=== PATIENT | female | born 1980 | race Caucasian/White ===

== ENCOUNTER 2020-02-23 14:42 | Outpatient (REF) | payer MEDICAID, SELFPAY | END 2020-02-23 14:43 | disposition home or self-care (01) | LOC: HO.LAB 14:42 | PROVIDERS: Visit Provider Internal Medicine | DX: Z20.828 Contact with and (suspected) exposure to other viral communicable diseases (principal) | CPT/HCPCS: U0003 ==

== ENCOUNTER 2020-08-18 09:00 | Outpatient (REF) | payer MEDICAID, SELFPAY ==
[2020-08-18 09:52] LABS: COVID-19 Test Negative (Negative)
== END 2020-08-18 09:01 | disposition home or self-care (01) ==
LOC: HO.LAB 09:00
PROVIDERS: Visit Provider Internal Medicine
DX: Z20.822 Contact with and (suspected) exposure to COVID-19 (principal)
CPT/HCPCS: 36415; 87635; C9803

== ENCOUNTER 2020-11-28 15:15 | Emergency (ER) | payer MEDICAID, SELFPAY ==
--- NOTE | ~2020-11-28 | US_ITS ---
EXAMINATION: US VENOUS ULTRASOUND WITH DOPPLER LOWER EXTREMITY, LEFT CLINICAL INFORMATION: Calf pain. COMPARISON: None TECHNIQUE: Ultrasound of the deep veins is performed from the hip to the calf with compression sonography and color and pulse Doppler assessment. Spectral analysis with color-flow imaging is performed. FINDINGS: There is normal venous compression and respiratory variation and augmented flow. The visualized common femoral vein, superficial femoral vein, profunda femoral vein, popliteal vein, and the trifurcation region shows no evidence of deep venous thrombosis. There is no small to moderate popliteal fossa cyst. No calf edema seen. If the patient's symptoms persist, followup ultrasound in 5 days 7 days might be of value to exclude proximal propagation from a non-visualized calf vein. US/US venous duplex LE LT IMPRESSION: No DVT demonstrated in the left lower extremity. Small to moderate popliteal cyst
--- NOTE | ~2020-11-28 | XR_ITS ---
EXAMINATION: XR LUMBOSACRAL SPINE CLINICAL INFORMATION: Low back pain. COMPARISON: None TECHNIQUE: Three views of the lumbosacral spine. FINDINGS: There is normal lumbar lordosis. The vertebral heights and alignment is normal. No visible acute fracture, dislocation or subluxation seen. No lytic process seen. The paravertebral soft tissues are normal XR/XR lumbar spine 2-3V IMPRESSION: Unremarkable lumbar spine exam.
[2020-11-28 15:32] VITALS: BP 122/64; PULSE 77; RESP 20; TEMP 36.8; O2SAT 95; BMI 38.0
--- NOTE | 2020-11-28 15:35 | ED_ITS ---
HPI - General Adult General Chief complaint: General Medical Stated complaint: back pain Time Seen by Provider: 11/28/20 15:34 Related Data Previous Rx's Medication Instructions Recorded cyclobenzaprine 10 mg tablet 10 mg PO TID 3 Days #9 tab 11/28/20 prednisone 50 mg tablet 50 mg PO DAILY 5 Days #5 tab 11/28/20 Allergies Allergy/AdvReac Type Severity Reaction Status Date / Time No Known Allergies Allergy Verified 11/28/20 15:32 [facility] Past Medical History Medical History (Updated 11/29/20 @ 00:01 by Virginie Vaz) No pertinent past medical history Social History Social History Advance Directives: No Advance Directives Information Provided: Yes Patient : No Physical Exam Vital Signs: Vital Signs: Last Vital Signs Temp 97.9 F 11/28/20 16:39 Pulse 65 11/28/20 16:39 Resp 16 11/28/20 16:39 BP 99/49 L 11/28/20 16:39 Pulse Ox 98 11/28/20 16:39 Body Mass Index 38.0 Course Course Course Narrative: Patient presents to the ED for left lower back pain and secondary complaint she believes leg calf is swollen and is painful and is concerned for blood clot ( legs on exam presently negative for swelling or pitting edema). Back xray and leg US ordered. This is rapid medical screening. Patient vital signs stable. 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 You can take the cyclobenzaprine which is a muscle relaxant tonight. Please do not take the prednisone until tomorrow morning. Please rest, but when you feel better, try the back stretches that we discussed. Please call the phone number that I gave you for to establish a primary care provider. Once you establish with a primary care provider you might want to be referred to physical therapy so you do not have chronic back pain. In addition, I have referred you to orthopedics. You also have a Hill cyst in your left leg. If this is bothersome you can have a follow-up appointment with Orthopedics, they may offer you a steroid injection. Hill's cysts will often resolve on their own. If you have numbness in her groin, bowel incontinence leg weakness, or urinary retention, please return to the emergency. Please return to emergency room for any or concerning symptoms Prescriptions: New prednisone 50 mg tablet 50 mg PO DAILY 5 Days Qty: 5 RF: 0 cyclobenzaprine 10 mg tablet 10 mg PO TID 3 Days Qty: 9 RF: 0 Referrals: Michel Dennis MD [Physician] - 2 days (Hill's cyst left knee, knee pain x 1 week) Interventions: ED Discharge Assessment Last Done: 11/28/20 18:06 Discharge Date/Time: 11/28/20 18:06
--- NOTE | 2020-11-28 16:37 | ED.GENADULT ---
HPI - General Adult General Chief complaint: General Medical Stated complaint: back pain Time Seen by Provider: 11/28/20 15:34 Source: patient Mode of arrival: ambulatory Limitations: no limitations History of Present Illness HPI narrative: 40-year-old female presents with pain in her left buttock radiating down to her left leg. This started 2 days ago. She has had this before. She cannot set on the toilet due to pain, she cannot wipe herself due to pain. Her left leg feels numb. States the pain as a 10/10 now. Patient took 2 Motrin this morning. Patient has no UTIs symptoms, no saddle paresthesias, no fevers, no history of IV drug use, no leg weakness, no personal history of cancer States she tried to urinate yesterday but could not urinate, but can urinate today. Related Data Previous Rx's Medication Instructions Recorded cyclobenzaprine 10 mg tablet 10 mg PO TID 3 Days #9 tab 11/28/20 prednisone 50 mg tablet 50 mg PO DAILY 5 Days #5 tab 11/28/20 Allergies Allergy/AdvReac Type Severity Reaction Status Date / Time No Known Allergies Allergy Verified 11/28/20 15:32 Review of Systems Review of Systems: Constitutional : No Weight loss, No Fever, No Chills, No Night Sweats,No Fatigue, No Malaise ENT/Mouth : No Hearing loss, No Ear Pain, No Nasal Congestion, NoSinus Pain, No Hoarseness, No sore throat, No Rhinorrhea, NoSwallowing Difficulty Eyes: No Eye Pain, No Swelling, No Redness, No Foreign Body, NoDischarge, No Vision Changes Cardiovascular : No Chest Pain, No SOB, No Dyspnea on Exertion, NoOrthopnea, No Edema, No Palpitations Respiratory : No Cough, No Sputum, No Wheezing, No Smoke Exposure, No Dyspnea Gastrointestinal : No Nausea, No Vomiting, No Diarrhea, NoConstipation, No abdominal Pain, No Hematochezia, No Melena Genitourinary : no irregular bleeding, No Dysuria, No UrinaryFrequency, No Hematuria, No Urinary Incontinence, No Urgency, No FlankPain, Musculoskeletal : pain in left buttock radiating down left leg Skin : No Skin Lesions, No rash Neuro : No Weakness, No Numbness, No Paresthesias, No Loss ofConsciousness, No Dizziness, No Headache Psych : No Anxiety/Panic, No Depression, No SI/HI/AH/VH, No Social Issues, Heme/Lymph: No Bruising, No Bleeding,No Lymphadenopathy Endocrine : No Polyuria, No Polydipsia, No Temperature Intolerance Yes all other systems are reviewed and are negative [facility] Past Medical History Medical History (Updated 11/28/20 @ 16:45 by ROQUE Liu) No pertinent past medical history Social History Social History Advance Directives: No Advance Directives Information Provided: Yes Patient : No Physical Exam Vital Signs: Vital Signs: Last Vital Signs Temp 97.9 F 11/28/20 16:39 Pulse 65 11/28/20 16:39 Resp 16 11/28/20 16:39 BP 99/49 L 11/28/20 16:39 Pulse Ox 98 11/28/20 16:39 Body Mass Index 38.0 Appearance: Alert. Oriented X3. No acute distress. Head: Normal external exam. Normocephalic. Atraumatic. ?No Sibley signs noted. No raccoon eyes noted Eyes: PERRLA. EOMI. Conjunctiva and sclera normal. Eyelids normal. ENT: EAC normal. TM's Normal. Pharynx normal. Uvula midline. Moist mucous membranes. ??No trismus noted. ?No drooling noted. ?No muffled voice noted. Neck: Normal inspection. Neck supple. FROM. No adenopathy. Thyroid Normal. No meningeal signs. No neck mass noted. CVS: Normal heart rate and rhythm. Heart sound normal. Pulses normal throughout. ?No murmurs/rales/gallops. Respiratory: No respiratory distress. Painless inspiration. Breath sounds normal. No wheezes/rales/rhonchi noted. Chest nontender. ??No accessory muscle usage noted or decreased air movement noted. Abdomen: Soft and nontender. Bowel sounds normal in all 4 quadrants. No distention noted. ?No organomegaly noted. ?No visible injury noted. Back: ?No CVA tenderness. Skin: Skin warm and dry. ?Normal skin color. ?Normal skin turgor. No rashes/lesions/lacerations noted. Extremities: No lower extremity edema. ??Extremities exhibit normal range of motion. ?Extremities nontender. Neuro: Oriented X 3. ?No motor deficit. ?No sensory deficit. ?Reflexes normal. ?Normal steady gait. ?No focal neuro deficits noted. Vascular: + radial pulses/+ 2 distal pedal pulses/+2 dorsalis pedis b/l. ?Normal cap refill. ?No cyanosis noted to upper extremity nails and lower extremity toes nails. GI: Other: On rectal exam, normal sphincter tone, normal sensation to pinching of perineum Rectal Exam - Female: visual inspection normal, normal sphincter tone and Anal wink reflex intact Back/Spine/Pelvis: Cervical Spine: normal cervical lordosis, cervical ROM normal, No Cervical spine tenderness and No step off deformity Thoracic/Lumbar Spine: straight leg raise negative bilaterally, pain with thoraco-lumbar ROM, No paraspinal muscle tenderness, thoraco-lumbar ROM limited with forward flexion and with lateral flexion to the left, No thoraco-lumbar spasm, No thoracic spinal tenderness and No lumbar spinal tenderness Pelvis: buttock tenderness on the left Extrem: Right lower extremity: full ROM, normal capillary refill and knee (fullness in popiliteal fossa) Details: tenderness Location: of the popliteal fossa, swelling Location: of the popliteal fossa, normal ROM and knee ligament exam normal; Negative for no ecchymosis, no crepitus, no deformity and no unusual warmth; No no edema Psych: Affect: Anxious affect present Course Course Course Narrative: 52-year-old presents with left-sided buttock pain radiating into her left leg. Patient states he had a hard time urinating yesterday, on exam, patient has full extremity motor strength, sensation, pulses, and deep tendon reflexes. Rectal exam shows normal sphincter tone, normal sensation to pinching of perineum. Patient has limited range of motion of her spine, no vertebral point tenderness. Patient given Flexeril, ketorolac prednisone. She is feeling much better with pain medication. Ultrasound left leg: There is normal venous compression and respiratory variation and augmented flow. The visualized common femoral vein, superficial femoral vein, profunda femoral vein, popliteal vein, and the trifurcation region shows no evidence of deep venous thrombosis. ? There is no small to moderate popliteal fossa cyst. No calf edema seen. If the patient's symptoms persist, followup ultrasound in 5 days 7 days might be of value to exclude proximal propagation from a non-visualized calf vein. XR lumbaoscaral spine: There is normal lumbar lordosis. The vertebral heights and alignment is normal. No visible acute fracture, dislocation or subluxation seen. No lytic process seen. The paravertebral soft tissues are normal Give patient information about Hill cyst, referred her to Orthopedics if she would like to follow-up. Provided reassurance. Give patient list of primary care provider to establish with a primary care provider who may order physical therapy for her for her back. Prescribed prednisone and Flexeril, gave return precautions. All patient's questions were answered, patient verbalized agreement and understanding of the plan Discharge Plan Discharge Clinical Impression: Sciatica of left side, Synovial cyst of popliteal space [Hill], left knee Patient Disposition: Home, Self-Care Instructions: Sciatica (ED), Bakers Cyst (ED), Lower Back Exercises (ED) Additional Instructions: Please fill your prescriptions that I have sent over to your pharmacy. You can take the cyclobenzaprine which is a muscle relaxant tonight. Please do not take the prednisone until tomorrow morning. Please rest, but when you feel better, try the back stretches that we discussed. Please call the phone number that I gave you for to establish a primary care provider. Once you establish with a primary care provider you might want to be referred to physical therapy so you do not have chronic back pain. In addition, I have referred you to orthopedics. You also have a Hill cyst in your left leg. If this is bothersome you can have a follow-up appointment with Orthopedics, they may offer you a steroid injection. Hill's cysts will often resolve on their own. If you have numbness in her groin, bowel incontinence leg weakness, or urinary retention, please return to the emergency. Please return to emergency room for any or concerning symptoms Prescriptions: New prednisone 50 mg tablet 50 mg PO DAILY 5 Days Qty: 5 RF: 0 cyclobenzaprine 10 mg tablet 10 mg PO TID 3 Days Qty: 9 RF: 0 Referrals: Michel Dennis MD [Physician] - 2 days (Hill's cyst left knee, knee pain x 1 week)
[2020-11-28 16:39] VITALS: BP 99/49; PULSE 65; RESP 16; TEMP 36.6; O2SAT 98
[2020-11-28] MEDS: Cyclobenzaprine HCl 10 MG TABLET PO (16:57)
[2020-11-28] MEDS: predniSONE 20 MG TABLET 60 MG PO (16:57)
[2020-11-28] MEDS: Ketorolac Tromethamine 15 MG/ML VIAL IM (16:58)
== END 2020-11-28 18:06 | disposition home or self-care (01) ==
PROVIDERS: Emergency Provider Emergency Medicine
DX: M54.42 Lumbago with sciatica, left side (principal); M54.41 Lumbago with sciatica, right side; M71.22 Synovial cyst of popliteal space [Baker], left knee; R60.0 Localized edema; Z79.899 Other long term (current) drug therapy
CPT/HCPCS: 72100; 93971; 96372; 99284; J1885

== ENCOUNTER 2021-01-07 11:43 | Emergency (ER) | payer OTHER, SELFPAY ==
--- NOTE | ~2021-01-07 | XR_ITS ---
EXAMINATION: XR HIP, LEFT CLINICAL INFORMATION: Pain COMPARISON: None TECHNIQUE: Two views of the left hip and one view of the pelvis. FINDINGS: Bone alignment is normal. No fracture or dislocation is seen. The hip joints are normal appearing. Bones of the pelvis are normal. There is sacralization of the left L5 transverse process. Soft tissues are unremarkable. XR/XR hip LT w [id number] IMPRESSION: Normal left hip. Sacralization of the left L5 transverse process.
--- NOTE | ~2021-01-07 | XR_ITS ---
EXAMINATION: XR LUMBOSACRAL SPINE CLINICAL INFORMATION: Pain COMPARISON: None TECHNIQUE: Three views of the lumbosacral spine. FINDINGS: Bone alignment is normal. No fracture or dislocation is seen. Disc spaces are normal. There is sacralization of the left L5 transverse process. Paraspinal soft tissues are unremarkable. XR/XR lumbar spine 2-3V IMPRESSION: Sacralization of the left L5 transverse process otherwise unremarkable exam.
[2021-01-07 11:55] VITALS: BP 140/68; PULSE 93; RESP 18; TEMP 36.8; O2SAT 100; BMI 38.6
--- NOTE | 2021-01-07 12:10 | ED_ITS ---
HPI - Abdominal Pain General Chief Complaint: Extremity Problem Stated Complaint: LOWER ABD PAIN INTO BACK Time Seen by Provider: 01/07/21 12:07 Source: patient Mode of arrival: ambulatory Limitations: no limitations History of Present Illness HPI narrative: 32-year-old with a past medical history of left Hill's cyst and sciatica of left leg complains of 1 week of left groin pain. Patient can not get in to be seen with her PCP until early January. She is taking ibuprofen and naproxen, but has still tenderness in her left upper thigh. Patient states she can not wipe herself or have success due to the pain in her left upper thigh. It is hard to put her sock on. She has some numbness behind her knee for the last 6 weeks. This all started with pain in her low back, radiating down her left leg, now she has pain in her anterior groin. No pelvic pain, no vaginal pain, no vaginal bleeding or discharge. No saddle paresthesias, no leg weakness, no incontinence of bowel or bladder, no fevers, no history of IV drug use. Related Data Previous Rx's Medication Instructions Recorded cyclobenzaprine 10 mg tablet 10 mg PO TID 3 Days #9 tab 11/28/20 prednisone 50 mg tablet 50 mg PO DAILY 5 Days #5 tab 11/28/20 ketorolac 10 mg tablet 10 mg PO Q6H 3 Days #12 tab 01/07/21 prednisone 20 mg tablet 60 mg PO DAILY 5 Days #15 tab 01/07/21 Allergies Allergy/AdvReac Type Severity Reaction Status Date / Time No Known Allergies Allergy Verified 11/28/20 15:32 Review of Systems Constitutional: Denies body ache(s), Denies chills, Denies fatigue, Denies fever(s), Denies headache(s), Denies malaise and Denies weakness Eyes: Denies diplopia Denies vertigo, Denies dizziness, Denies otalgia, Denies headache(s), Denies mouth pain, Denies post nasal drip, Denies sinus pain, Denies sinus pressure, Denies sore throat and Denies throat swelling Cardiovascular: Denies chest pain, Denies syncope, Denies leg edema, Denies lightheadedness, Denies Loss of Consciousness, Denies palpitations and Denies dyspnea Respiratory: Denies chest congestion, Denies cough and Denies dyspnea Gastrointestinal: Denies abdominal pain, Denies hematochezia, Denies constipation, Denies diarrhea and Denies vomiting Genitourinary: Denies abnormal vaginal bleeding, Denies dysuria, Denies pelvic pain, Denies urinary urgency and Denies vaginal discharge Musculoskeletal: Reports back pain, Reports arthralgias, Reports numbness and Reports radiating pain into limb Skin/Breast: Denies erythema and Denies rash Denies confusion, Denies vertigo, Denies dizziness, Denies syncope, Denies headache(s), Reports numbness, Denies Sensory deficit (Neuro), Reports paresthesias and Denies weakness Psychiatric: Denies anxiety, Denies confusion and Denies depression Endocrine: Denies fatigue and Denies palpitations Allergic/Immunologic: Denies throat swelling Physical Exam Vital Signs: Vital Signs: Last Vital Signs Temp 98.2 F 01/07/21 11:55 Pulse 93 01/07/21 11:55 Resp 18 01/07/21 14:15 BP 140/68 H 01/07/21 11:55 Pulse Ox 100 01/07/21 11:55 Body Mass Index 38.6 Const: General: No confusion Nutritional Appearance: well nourished Orientation/consciousness: patient oriented x3 and No confusion Limitations: no limitations HENMT: Head: Yes normal to inspection, Yes normocephalic and Yes atraumatic Ears: hearing grossly normal bilaterally, external ears normal, TM's normal bilaterally and EAC's normal General nose exam: Normal external nose present Face and sinus: Yes normal facial exam and Yes sinuses nontender Mouth: Normal oral and palatal mucosa present Throat: Yes posterior oropharynx normal Eyes: Conjunctivae: conjunctivae normal Pupils: Equal, round and reactive pupils present EOM: EOMs intact bilaterally Neck: Neck: Yes full ROM, Yes no lymphadenopathy and Yes supple Resp: Effort & Inspection: normal respiratory effort and able to speak in complete sentences Auscultation: clear to auscultation bilaterally, no crackles, no rales, no rhonchi and no wheezes Cardio: Rate: regular rate Rhythm: regular rhythm Heart sounds: S1 normal heart sound present and S2 normal heart sound present GI: Inspection: Yes normal to inspection Palpation (GI): Soft to palpation, nontender, no guarding and not rigid Percussion: Yes normal to percussion Auscultation: normal bowel sounds Back/Spine/Pelvis: Cervical Spine: No Cervical spine tenderness Thoracic/Lumbar Spine: No thoraco-lumbar spasm, No thoracic spinal tenderness and No lumbar spinal tenderness Pelvis: no pain with anterior-posterior compression and no pain with lateral compression Sacroiliac joints: on the left tender to palpation Skin: General skin exam: no rashes or lesions noted Neuro: General: patient oriented x3, gait normal and No confusion Cranial nerves: Yes Equal, round and reactive pupils present Sensory Exam: No Sensory deficit (Neuro) Deep tendon reflexes (DTR's): Right patellar reflex intensity grade: 2+ and Left patellar reflex intensity grade: 2+ Extrem: Left lower extremity: full ROM, normal capillary refill, hip/thigh Details: normal to inspection and abnormal ROM Details: pain with active ROM Details: with ADduction, with ABduction, with internal rotation and with external rotation; Negative for but not with extension and but not with flexion; Negative for no tenderness, no crepitus, no deformity and no unusual warmth, knee Details: normal to inspection and normal ROM; Negative for no tenderness and no swelling and lower leg Details: normal to inspection; Negative for no erythema and no tenderness; No no cyanosis and no edema Psych: Appearance: grossly normal Affect: normal affect Attitude: cooperative Thought process: Normal thought process present Course Course Course Narrative: 40-year-old female with past medical history of left knee Hill's cyst, left-sided sciatica presents for left groin pain. Patient has intact lower extremity pulses, deep tendon reflexes, motor strength and sensation. Patient is tender in her left buttock, muscle tenderness radiating a round to her left groin. No pelvic pain, no vaginal complaints. Patient has reduced flexion of her spine, she has reduced range of motion with internal and external rotation of her hip due to pain. X-ray lumbar spine and hip pelvis are all negative. Most likely patient has pain due to different body mechanics as she is compensating for her left knee pain and left sciatica. Gave prednisone, ketorolac, referred patient to Physical therapy. Gave return precautions. MDM - Abdominal Pain Lab Data Labs: Lab Results 01/07/21 Range/Units 13:04 Urine Test NEGATIVE (NEGATIVE) Discharge Plan Discharge Clinical Impression: Acute left-sided back pain with sciatica Patient Disposition: Home, Self-Care Instructions: Sciatica (ED), Lower Back Exercises (ED) Additional Instructions: Please call [facility] [phone] on Saturday morning. They may request that your primary care provider put in an order for this, in which case you can call and request that from your primary care provider. I have referred you to them. Please take the medicines as prescribed. If you have sudden leg weakness, bowel or bladder incontinence, numbness in groin, or any other new or concerning symptoms please return to the emergency room. Prescriptions: New prednisone 20 mg tablet 60 mg PO DAILY 5 Days Qty: 15 RF: 0 ketorolac 10 mg tablet 10 mg PO Q6H 3 Days Qty: 12 RF: 0 No Action prednisone 50 mg tablet 50 mg PO DAILY 5 Days Qty: 5 RF: 0 cyclobenzaprine 10 mg tablet 10 mg PO TID 3 Days Qty: 9 RF: 0 Referrals: Physical Therapy - [facility] [place] [Outside] - 2 days (left sided sciatica) Interventions: ED Discharge Assessment Last Done: 01/07/21 14:31 [facility] Past Medical History Medical History No pertinent past medical history Social History Social History Advance Directives: No Advance Directives Information Provided: No Patient : No
[2021-01-07] MEDS: predniSONE 20 MG TABLET 60 MG PO (12:47)
[2021-01-07] MEDS: Ketorolac Tromethamine 15 MG/ML VIAL 30 MG IM (12:47)
[2021-01-07 13:08] LABS: UPreg QC Valid YES
[2021-01-07 13:10] LABS: Urine Pregnancy NEGATIVE (NEGATIVE)
[2021-01-07 14:15] VITALS: RESP 18
== END 2021-01-07 14:34 | disposition home or self-care (01) ==
PROVIDERS: Physician Assistant; Emergency Provider Emergency Medicine
DX: M54.42 Lumbago with sciatica, left side (principal); M25.552 Pain in left hip; Z79.899 Other long term (current) drug therapy
CPT/HCPCS: 72100; 73502; 81025; 96372; 99284; J1885

== ENCOUNTER 2021-02-22 15:42 | Outpatient (REF) | payer OTHER, SELFPAY | END 2021-02-22 15:43 | disposition home or self-care (01) | LOC: HO.LAB 15:42 | PROVIDERS: Visit Provider Internal Medicine | DX: Z20.822 Contact with and (suspected) exposure to COVID-19 (principal) | CPT/HCPCS: C9803; U0003; U0005 ==

== ENCOUNTER 2021-08-03 10:42 | Emergency (ER) | payer OTHER, SELFPAY ==
[2021-08-03 11:30] VITALS: BP 123/83; PULSE 82; RESP 18; TEMP 36.1; O2SAT 100; BMI 37.2
--- NOTE | 2021-08-03 12:00 | ED.DENTAL ---
HPI - Dental/Oral General Chief complaint: Dental/Oral Stated complaint: facial swelling Time Seen by Provider: 08/03/21 12:00 Source: patient Mode of arrival: ambulatory Limitations: no limitations History of Present Illness HPI Narrative: 41 y/o female presenting to the ER with left sided dental pain and left sided facial swelling that she noted this morning when she woke up. She states she has a left upper molar that has been cracked for almost a year and she never eats on that side because of chronic pain. She denies any history of swelling but woke up this morning with significant left-sided facial swelling and increased pain in the tooth. She denies any fever, difficulty eating or drinking, swelling of her airway. MD Complaint: tooth pain Location: Tooth # (14) Onset (ago): day(s) Duration: constant Severity: moderate Relieving factors: nothing Exacerbating factors: chewing Context: history of dental caries, trauma (mechanism) and poor dental care Associated symptoms: gum swelling Treatment prior to arrival: none Related Data Previous Rx's Medication Instructions Recorded cyclobenzaprine 10 mg tablet 10 mg PO TID 3 Days #9 tab 11/28/20 prednisone 50 mg tablet 50 mg PO DAILY 5 Days #5 tab 11/28/20 ketorolac 10 mg tablet 10 mg PO Q6H 3 Days #12 tab 01/07/21 prednisone 20 mg tablet 60 mg PO DAILY 5 Days #15 tab 01/07/21 clindamycin HCl 300 mg capsule 300 mg PO Q6H 7 Days #28 cap 08/03/21 ibuprofen 800 mg tablet 800 mg PO Q8H PRN #20 tab 08/03/21 tramadol 50 mg tablet 50 mg PO Q8H PRN #7 tab 08/03/21 Allergies Allergy/AdvReac Type Severity Reaction Status Date / Time No Known Allergies Allergy Verified 11/28/20 15:32 Review of Systems Review of Systems: Constitutional: No Fever, No Chills ENT/Mouth: No sore throat, No Rhinorrhea, No Swallowing Difficulty, +Dental pain, +facial swelling. Eyes: No Eye Pain, No Swelling, No Redness Cardiovascular: No Chest Pain, No SOB Respiratory: No Cough, No Sputum Gastrointestinal: No Nausea, No Vomiting, No Diarrhea, No abdominal Pain, No Hematochezia, No Melena Musculoskeletal: No joint pain, No Myalgias Skin: No Skin Lesions, No rash Neuro: No Weakness, No Numbness, No Dizziness, + Headache Psych: + Anxiety/Panic, Heme/Lymph:No Lymphadenopathy PMFSH Past Medical History Medical History No pertinent past medical history Social History Social History Advance Directives: No Advance Directives Information Provided: Yes Physical Exam Vital Signs: Vital Signs: Last Vital Signs Temp 96.9 F 08/03/21 11:30 Pulse 82 08/03/21 11:30 Resp 18 08/03/21 11:30 BP 123/83 08/03/21 11:30 Pulse Ox 100 08/03/21 11:30 BMI result Body Mass Index 37.2 Appearance: Alert. Oriented X3. No acute distress. Head/face: Left-sided facial swelling involving the left maxillary area Eyes: Pupils equal, round and reactive to light. ENT: Pharynx with moist mucous membranes, left upper 1st molar with cracked tooth down to the Anthony with significant tenderness, associated gingival erythema and tenderness without fluctuation. Weight is patent, normal voice. Neck: Normal inspection. Neck supple. CVS: Normal heart rate and rhythm. Pulses normal. Respiratory: No respiratory distress. Breath sounds normal. Skin: Skin warm and dry. Normal skin color. Normal skin turgor. No rashes. Extremities: Normal inspection x4 Neuro: Oriented X 3. Grossly normal, nonfocal Course Course Course Narrative: 41-year-old female presenting to the ER with left-sided facial swelling and left upper dental pain at that started this morning. She has had a cracked tooth on the left side for almost a year but has had no issues with it. This morning she woke up with significant facial swelling and pain in her left upper tooth. No issues swallowing or eating. No fever or chills. On examination there is gingival erythema and tenderness but no fluctuance. There is tenderness of the broken tooth, most likely a dental abscess, not amenable to drainage in the emergency room today. Will start her on oral antibiotics, NSAIDs and pain control and have her follow-up with her dentist as soon as possible. Patient agrees with plan and stable for discharge home. Critical Care Time Critical Care Time Critical Care Time: No Discharge Plan Discharge Clinical Impression: Dental abscess Patient Disposition: Home, Self-Care Instructions: Dental Abscess (ED) Additional Instructions: Follow up with your dentist JAIRO Take all of the prescribed medications as directed If you develop new or worsening symptoms call 911 or come back to the ER for further evaluation. Prescriptions: New clindamycin HCl 300 mg capsule 300 mg PO Q6H 7 Days Qty: 28 0RF ibuprofen 800 mg tablet 800 mg PO Q8H PRN (Reason: pain) Qty: 20 0RF tramadol 50 mg tablet 50 mg PO Q8H PRN (Reason: severe pain (scale score 7-10)) Qty: 7 0RF No Action prednisone 50 mg tablet 50 mg PO DAILY 5 Days Qty: 5 0RF Rx Instructions: Please take your dose in the morning cyclobenzaprine 10 mg tablet 10 mg PO TID 3 Days Qty: 9 0RF prednisone 20 mg tablet 60 mg PO DAILY 5 Days Qty: 15 0RF ketorolac 10 mg tablet 10 mg PO Q6H 3 Days Qty: 12 0RF
== END 2021-08-03 12:27 | disposition home or self-care (01) ==
PROVIDERS: Emergency Provider Emergency Medicine
DX: K04.7 Periapical abscess without sinus (principal); K08.89 Other specified disorders of teeth and supporting structures; Z79.899 Other long term (current) drug therapy
CPT/HCPCS: 99283

== ENCOUNTER 2023-05-29 10:15 | Emergency (ER) | payer OTHER, SELFPAY ==
--- NOTE | 2023-05-29 11:11 | ED_ITS ---
HPI - General Adult General Chief complaint: Upper Respiratory Symptoms Stated complaint: Sore throat Time Seen by Provider: 05/29/23 13:52 Source: patient Mode of arrival: ambulatory Limitations: no limitations History of Present Illness HPI narrative: 43 year old female with no significant pmhx presents to the ED this morning for evaluation of sore throat, cough, sneezing, headache and left ear pain x3 days. Cough is nonproductive. Reports head feels congested. 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 Unsure if anyone has recently tested positive for COVID or flu. Has not been taking any [id number] medications for this at home. Denies fever, chills, dizziness, vision changes, odynophagia, dysphagia, chest pain, shortness of breath, dyspnea, N/V/D. Related Data Previous Rx's Medication Instructions Recorded cyclobenzaprine 10 mg tablet 10 mg PO TID 3 days #9 tabs 11/28/20 prednisone 50 mg tablet 50 mg PO DAILY 5 days #5 tabs 11/28/20 ketorolac 10 mg tablet 10 mg PO Q6H 3 days #12 tabs 01/07/21 prednisone 20 mg tablet 60 mg (3 x 20 mg) PO DAILY 5 days 01/07/21 #15 tabs clindamycin HCl 300 mg capsule 300 mg PO Q6H 7 days #28 caps 08/03/21 ibuprofen 800 mg tablet 800 mg PO Q8H PRN pain #20 tabs 08/03/21 tramadol 50 mg tablet 50 mg PO Q8H PRN severe pain 08/03/21 (scale score 7-10) #7 tabs benzocaine 15 mg-menthol 2.6 mg 1 keke mucous membrane Q2-4H PRN 05/29/23 lozenges (Cepacol Sore Throat sore throat #16 ea (benzocaine-menthol)) benzonatate 100 mg capsule 100 mg PO BID PRN cough #20 caps 05/29/23 Allergies Allergy/AdvReac Type Severity Reaction Status Date / Time No Known Allergies Allergy Verified 05/29/23 11:12 Review of Systems Review of Systems: Constitutional: No fever, chills, fatigue, night sweats, weight changes ENT/Mouth: +ear pain, No hearing loss, nasal congestion, sinus pain, rhinorrhea, +sore throat, No odynophagia, No dysphagia Eyes: No eye pain, swelling, redness, vision changes, discharge Cardio: No chest pain, palpitations, HENRY, orthopnea, peripheral edema Pulm: No SOB, +cough, No sputum, wheezing, dyspnea, hemoptysis GI: No nausea, vomiting, hematemesis, abdominal pain, diarrhea, constipation, hematochezia, melena : No irregular bleeding, dysuria, frequency, urgency, hesitancy, hematuria, flank pain MSK: No back pain, neck pain, joint pain, myalgias Skin: No lesions, rashes Neuro: No weakness, numbness, paresthesias, LOC, dizziness, +headache All other systems reviewed and are negative. [facility] Past Medical History Attestation statement: The following information was validated with the patient. Source: old records reviewed and nursing notes reviewed Medical History No pertinent past medical history Social History Social History Advance Directives: No Advance Directives Information Provided: No Physical Exam ED Vital Signs: Vital Signs - 24 hr 05/29/23 11:12 Temperature 96.9 F Pulse Rate 67 Respiratory Rate 16 Blood Pressure 127/71 Pulse Oximetry 97 Oxygen Delivery Method Room Air BMI result Body Mass Index 40.1 Vital signs stable, afebrile Const General: cooperative, healthy appearing, comfortable, no acute distress, alert and awake Orientation/consciousness: patient oriented x3 Limitations: no limitations HENMT Other: + posterior oropharynx erythematous, no edema, uvula is midline, no tonsilar exudates or peritonsillar masses, controlling secretions and speaking in complete sentences. Head: Yes normal to inspection, Yes normocephalic and Yes atraumatic Ears: hearing grossly normal bilaterally, external ears normal, TM's normal bilaterally, EAC's normal, mastoids normal and no periauricular adenopathy General nose exam: Normal external nose present and No nasal discharge present Face and sinus: Yes normal facial exam and Yes sinuses nontender Eyes General: appearance normal, both eyes and all related structures Conjunctivae: conjunctivae normal Sclerae: sclerae normal Pupils: Equal, round and reactive pupils present Neck Other: + no cervical, submandibular or submental LAD. Neck: Yes normal visual inspection and Yes full ROM Resp Effort & Inspection: normal respiratory effort and able to speak in complete sentences Auscultation: clear to auscultation bilaterally Cardio Rate: regular rate Rhythm: regular rhythm GI Inspection: Yes normal to inspection Palpation (GI): Soft to palpation and nontender Skin General skin exam: no rashes or lesions noted Neuro General: patient oriented x3, gait normal and moves all extremities Cranial nerves: Yes Equal, round and reactive pupils present Extrem General: Yes normal to inspection Course Course Course Narrative: 1400-- serology is negative for COVID, flu, strep throat. Likely viral upper respiratory infection. Discussed workup results with patient. Will send Cepacol throat lozenges and Tessalon Perles to pharmacy. Discussed worrisome signs and symptoms of when to return to the ED. all questions answered at this time. Patient is agreeable with disposition stable for discharge. Medical Decision Making Medical Decision Making [facility] Narrative: 43 year old female with no significant pmhx presents to the ED this morning for evaluation of sore throat, cough, sneezing, headache and left ear pain x3 days. Vital signs stable, afebrile. Nontoxic-appearing and in no acute distress. posterior oropharynx erythematous, no edema, uvula is midline, no tonsilar exudates or peritonsillar masses, controlling secretions and speaking in complete sentences. Bilateral EACs and TMs WNL. Lungs CTA bilaterally. Exam nonfocal. Clinical concern for strep throat, mono, viral syndrome. Unlikely [employer], retropharyngeal abscess, dental abscess, epiglottis, acute respiratory distress, pneumonia. Plan for serology and re-evaluation. Differential Diagnosis Differential Diagnoses: The differential diagnosis associated with the present ation includes as above. Admission/Observation Not indicated Lab Data [facility] Lab Attestation statement: I reviewed the patient's lab results. as above Labs: Lab Results 05/29/23 05/29/23 Range/Units 11:04 11:17 COVID-19 (SILVA) Negative (Negative) COVID-19 Clin Com See Note Influenza Type A (ROXANNE) Negative (Negative) Influenza Type B (ROXANNE) Negative (Negative) Influenza A & B Note See Note S. pyogenes GrpA ROXANNE Negative (Negative) External Record Review External record reviewed: Inpatient record Prescription Management I considered prescription management with: Pain Medication Social Determinants Patient?s care significantly limited by Social Determinants of Health including: Other Social Determinant of Health Critical Care Time Critical Care Time Critical Care Time: No Discharge Plan Discharge Clinical Impression: Upper respiratory infection Patient Disposition: Home, Self-Care Instructions: Upper Respiratory Infection (ED), Viral Syndrome (ED) Additional Instructions: You tested negative for strep throat, flu, COVID. You likely have a viral upper respiratory infection that does not require antibiotic treatment. Tessalon Perles have been sent to your pharmacy for cough. Cepacol throat lozenges have been sent to your pharmacy for sore throat. Alter ibuprofen and Tylenol for fevers and body aches. Follow-up with your PCP. If symptoms persist or worsen please return to the emergency department. The case of an emergency call 911. Prescriptions: New benzonatate 100 mg capsule 100 mg PO BID PRN (Reason: cough) Qty: 20 0RF Cepacol Sore Throat (suzanne-men) 15-2.6 mg lozenge 1 keke mucous membrane Q2-4H PRN (Reason: sore throat) Qty: 16 0RF No Action prednisone 50 mg tablet 50 mg PO DAILY 5 Days Qty: 5 0RF Rx Instructions: Please take your dose in the morning cyclobenzaprine 10 mg tablet 10 mg PO TID 3 Days Qty: 9 0RF prednisone 20 mg tablet 60 mg PO DAILY 5 Days Qty: 15 0RF ketorolac 10 mg tablet 10 mg PO Q6H 3 Days Qty: 12 0RF clindamycin HCl 300 mg capsule 300 mg PO Q6H 7 Days Qty: 28 0RF ibuprofen 800 mg tablet 800 mg PO Q8H PRN (Reason: pain) Qty: 20 0RF tramadol 50 mg tablet 50 mg PO Q8H PRN (Reason: severe pain (scale score 7-10)) Qty: 7 0RF Referrals: Physician,Unknown J [Primary Care Provider] - Stand Alone Forms: Work/School Release Interventions: ED Discharge Assessment Last Done: 05/29/23 14:11 Discharge Date/Time: 05/29/23 14:11
[2023-05-29 11:12] VITALS: BP 127/71; PULSE 67; RESP 16; TEMP 36.1; O2SAT 97; BMI 40.1
[2023-05-29 11:23] LABS: IDNOW Serial# 58CA691E; Strep A Nucleic Acid Negative (Negative)
[2023-05-29 11:34] LABS: COVID-19 Test Negative (Negative); IDNOW Serial# 9DB6401D
[2023-05-29 12:01] LABS: IDNOW Serial# 58CA691E; Influenza A Negative (Negative); Influenza B2 Negative (Negative)
== END 2023-05-29 14:11 | disposition home or self-care (01) ==
PROVIDERS: Physician Assistant Medical; Emergency Provider Emergency Medicine
DX: J06.9 Acute upper respiratory infection, unspecified (principal); J02.9 Acute pharyngitis, unspecified; Z11.52 Encounter for screening for COVID-19
CPT/HCPCS: 87502; 87635; 87651; 99282; 99283